=== PATIENT | female | born 1950 | race Caucasian/White ===

== ENCOUNTER 2018-09-14 07:14 | Day surgery (SDC) | payer MEDICARE, OTHER ==
[~2018-09-14 07:14] MED LIST: Lactated Ringers 1,000 ML IV SCH; Lidocaine 1%/Sod Bicarbonate in NS 8.4% 1 ML Syringe IDERM PRN; Midazolam 1 MG/ML 2 ML SDV ONE; Propofol 200 MG/20 ML SDV ONE; Sodium Chloride 0.9% 10 ML Syringe FLUSH PRN; ceFAZolin 1 GM Vial ONE; fentaNYL 100 MCG/2 ML SDV ONE
[2018-09-14] MEDS ORDERED: Dexamethasone 4 MG/ML SDV ONE (07:16)
[2018-09-14] MEDS ORDERED: Ondansetron 4 MG/2 ML SDV ONE (07:16)
[2018-09-14] MEDS ORDERED: Ketorolac 30 MG/ML SDV ONE (07:16)
--- NOTE | 2018-09-14 07:36 | PCM.PREANE ---
Preanesthetic Assessment - Anesthesia/Transfusion/Family Hx Anesthesia History: Prior Anesthesia Without Reaction Family History of Anesthesia Reaction: No Transfusion History: No Prior Transfusion(s) - Review of Systems General: No Symptoms Pulmonary: Other (current smoker) Cardiovascular: Palpitations (on occasion), Other (HTN, CAD, [place] 2000, denies any chest pain. 09/09/18 EKG sr with abnormal R wave progression with nonspecific t wave abnorml. unchanged from previous EKG) Gastrointestinal: Other (GERD controlled on meds) Other: Reports: Diabetes (HGB A1C 5.8), Thyroid Problems - Physical Assessment NPO Status Date: 09/13/18 NPO Status Time: 21:00 Pulse: 65 O2 Sat by Pulse Oximetry: 93 Respiratory Rate: 16 Blood Pressure: 148/72 ASA Class: 3 Mental Status: Alert & Oriented x3 Airway Class: Mallampati = 2 Dentition: Reports: Dentures, Edentulous Thyro-Mental Finger Breadths: 3 Mouth Opening Finger Breadths: 3 ROM/Head Extension: Full Lungs: Clear to Auscultation, Normal Respiratory Effort Cardiovascular: Regular Rate, Regular Rhythm - Lab Values: Laboratory Last Values MRSA (PCR) Negative 09/11/18 13:20 - Allergies Allergies/Adverse Reactions: Allergies Allergy/AdvReac Type Severity Reaction Status Date / Time No Known Allergies Allergy Verified 09/14/18 06:03 - Blood Blood Available: No Product(s) Available: None - Anesthesia Plan Pre-Op Medication Ordered: None Beta Sreedhar: Metoprolol Med Last Dose Date: 09/14/18 Med Last Dose Time: 06:50 - Acknowledgements Anesthesia Type Planned: General Anesthesia Pt an Appropriate Candidate for the Planned Anesthesia: Yes Alternatives and Risks of Anesthesia Discussed w Pt/Guardian: Yes Pt/Guardian Understands and Agrees with Anesthesia Plan: Yes PreAnesthesia Questionnaire - HOME MEDS Home Medications: Home Meds Acetaminophen/HYDROcodone [[place] 325-5 MG] 1 - 2 tab PO Q6H PRN #40 tablet 09/14 [Rx] Aspirin 325 mg PO DAILY #30 tab 09/14/18 [Rx] Cyclobenzaprine [Flexeril] 10 mg PO Q12H PRN #30 tab 09/14/18 [Rx] - CURRENT (IN HOUSE) MEDS Current Meds: Current Medications Lactated Ringer's (Ringers, Lactated) 1,000 mls @ 125 mls/hr IV ASDIRECTED MICHELLE Stop: 09/14/18 23:00 Lidocaine/Sodium Bicarbonate (Buffered Lidocaine 1% In Ns 8.4%) 0.25 ml IDERM ONETIME PRN PRN Reason: Prior to IV Start Stop: 09/14/18 23:00 Sodium Chloride (Saline Flush) 10 ml FLUSH ASDIRECTED PRN PRN Reason: Keep Vein Open Stop: 09/14/18 18:00 Discontinued Medications Cefazolin Sodium (Ancef) Confirm Administered Dose 2 gm .ROUTE .STK-MED ONE Stop: 09/14/18 07:13 Dexamethasone (Dexamethasone) Confirm Administered Dose 4 mg .ROUTE .STK-MED ONE Stop: 09/14/18 07:17 Fentanyl (Sublimaze) Confirm Administered Dose 100 mcg .ROUTE .STK-MED ONE Stop: 09/14/18 07:14 Ketorolac Tromethamine (Toradol) Confirm Administered Dose 30 mg .ROUTE .STK- MED ONE Stop: 09/14/18 07:17 Midazolam HCl (Versed 1 Mg/Ml) Confirm Administered Dose 2 mg .ROUTE .STK-MED ONE Stop: 09/14/18 07:14 Ondansetron HCl (Zofran) Confirm Administered Dose 4 mg .ROUTE .STK-MED ONE Stop: 09/14/18 07:17 Propofol (Diprivan 20 Ml) Confirm Administered Dose 200 mg .ROUTE .STK-MED ONE Stop: 09/14/18 07:13
[2018-09-14] MEDS ORDERED: Ropivacaine 0.5% 5 MG/ML 30 ML SDV ONE (07:51)
[2018-09-14] MEDS ORDERED: EPINEPHrine 1 MG/ML SDV ONE (07:51)
[2018-09-14] MEDS ORDERED: Bupivacaine 0.25% 30 ML SDV ONE (07:55)
[2018-09-14] MEDS ORDERED: Albuterol 0.083% 2.5 MG/3 ML Neb Soln NEB ONE (08:00)
[2018-09-14] MEDS ORDERED: fentaNYL 100 MCG/2 ML SDV ONE (08:28)
[2018-09-14] MEDS ORDERED: Lidocaine 1% PF 2 ML SDV ONE (08:46)
--- NOTE | 2018-09-14 09:02 | PCM.SN ---
- Free Text/Narrative Note: Interscalene nerve block note Date: 09/14/2018 Start: 804 Time Out: 804 Stop: 819 Procedure: Right interscalene block under US guidance for postoperative pain control Patient chart reviewed, risk/benefits discussed with patient, consent obtained. Patient positioned supine, monitors/alarms on, oxygen placed via nasal cannula at 2 LPM. Right shoulder prepped with chloraprep x2. Sterile drapes placed with aseptic technique. Under US guidance, right subclavian artery visualized along with the brachial plexus. Plexus followed cephalad up to C6 cricoid level, and area localized with 2mls of 1% lidocaine. 22gauge 2 inch stimiplex needle inserted under US and guided to brachial plexus C5-C6 trunks with 0.44mV with stimulation of biceps noted. Stimulation abolished at 0.2mVs. 1ml of Normal Saline injected with loss of stimulation. Incremental injection of 5mls with negative aspiration prior to each injection of 0.5% ropivacaine with 1:200,000 epinephrine. Total volume=30mls. Refer to nurses notes for vital signs. John Patten CRNA
[2018-09-14] MEDS ORDERED: Phenylephrine/Normal Saline 100 MCG/ML 10 ML Syringe ONE ×3 (09:19→09:58)
[2018-09-14] MEDS ORDERED: Lactated Ringers 1,000 ML ONE (09:19)
[2018-09-14] MEDS ORDERED: Ondansetron 4 MG/2 ML SDV IVPUSH PRN (09:54)
[2018-09-14] MEDS ORDERED: ePHEDrine 50 MG/ML SDV IVPUSH PRN (09:54)
[2018-09-14] MEDS ORDERED: diphenhydrAMINE 50 MG/ML SDV IVPUSH PRN (09:54)
[2018-09-14] MEDS ORDERED: fentaNYL 100 MCG/2 ML SDV IVPUSH PRN (09:54)
--- NOTE | 2018-09-14 10:53 | CR ---
Right shoulder: Three fluoroscopic spot views of the right shoulder were obtained utilizing C-arm device. Comparison: No previous shoulder exam is available. Study shows placement of plate and screws within the proximal humerus. This hardware crosses a fracture within the surgical neck. Fluoroscopy time given as 151.1 seconds. Impression: 1. Procedural study as noted above. Diagnostic code #2
--- NOTE | 2018-09-14 10:57 | PCM.POSTAN ---
POST ANESTHESIA ASSESSMENT - MENTAL STATUS Mental Status: Alert, Oriented - VITAL SIGNS Pulse Rate: 90 SaO2: 97 Resp Rate: 14 Blood Pressure: 94/60 Temperature: 36.4 C - RESPIRATORY Respiratory Status: Respiratory Rate WNL, Airway Patent, O2 Saturation Stable, Supplemental Oxygen - CARDIOVASCULAR CV Status: Pulse Rate WNL, Blood Pressure Stable - GASTROINTESTINAL GI Status: No Symptoms - PAIN Pain Score: 0 - POST OP HYDRATION Hydration Status: Adequate & Stable
--- NOTE | 2018-09-15 13:51 | PCM48HPAN ---
Post Anesthesia Note - EVALUATION WITHIN 48HRS OF ANESTHETIC Vital Signs in Normal Range: Yes Patient Participated in Evaluation: Yes Respiratory Function Stable: Yes Airway Patent: Yes Cardiovascular Function Stable: Yes Hydration Status Stable: Yes Pain Control Satisfactory: Yes Nausea and Vomiting Control Satisfactory: Yes Mental Status Recovered: Yes Pulse Rate: 90 Resp Rate: 16 Temperature: 36.4 C Blood Pressure: 94/60
--- NOTE | 2018-09-16 07:22 | PCM.OPNOTE ---
- General Post-Op/Procedure Note Date of Surgery/Procedure: 09/14/18 Operative Procedure(s): open reduction internal fixation of right proximal humerus fracture Pre Op Diagnosis: right proximal humerus fracture Post-Op Diagnosis: Same Anesthesia Technique: General ET Tube, Regional Block Primary Surgeon: Lew Escoto Anesthesia Provider: Damaris Chappell Sales Ledger Clerk: Patricia Zayas EBL in mLs: 40 Complications: None Condition: Good
--- NOTE | 2018-09-16 08:07 | OR ---
DATE OF OPERATION: 09/14/2018 SURGEON: Lew Escoto MD OPERATION PERFORMED: Open reduction and internal fixation of right proximal humerus fracture with repair of chronic supraspinatus tear of right shoulder. PREOPERATIVE DIAGNOSIS: Right proximal humerus fracture. POSTOPERATIVE DIAGNOSIS: Right proximal humerus fracture with chronic rotator cuff tear of right shoulder. ANESTHESIA: General endotracheal intubation with regional interscalene block. ANESTHESIA PROVIDER: Damaris Chappell. SALES PROMOTION MANAGER: Patricia Zayas PA-C ESTIMATED BLOOD LOSS: 4 mL. COMPLICATIONS: None. CONDITION: Stable. DESCRIPTION OF PROCEDURE: The patient was identified in the preoperative holding area. Proper site was marked and identified by the surgeon. The patient was taken back to the operating theater, where after adequate anesthesia, the patient's right upper extremity was sterilely prepped and draped in the usual sterile fashion. OR- wide time-out was performed. The patient received 2 g IV Ancef. At this time, a standard deltopectoral incision was made. This was taken down to the cephalic vein. The cephalic vein was identified as well as the deltopectoral interval. Any subacromial and subdeltoid adhesions were then resected. Retractor was placed out laterally. The proximal humerus fracture was identified. Old fracture hematoma was then curetted and rongeured out provisional reduction was then done. A Mesfin 3-hole proximal humerus plate was then placed under C-arm fluoroscopy and it was found to have adequate reduction in both AP and lateral views, making sure that the fracture was not significantly in varus. It was also noted, at this time, the patient had a chronic rotator cuff U-shaped tear that did not look acute whatsoever at the time of surgery, that I did place two #5 FiberWire stitches through, which were then later tied to the plate for repair. At this time, once the plate was in proper position, it was secured to the shaft and had good compression. Again, it was found to be in good position on the C-arm fluoroscopy at this time. Next, 5 locking screws were placed proximally both in a divergent fashion, anterior to posterior, and it was found to have adequate fixation throughout range of motion, so there would be no need for intercalary graft to the right proximal humerus. Once this was completed, the rest of the screws were placed proximally and then two more cortical screws were placed in the shaft and was found to have adequate fixation. The previous FiberWire stitches were then placed through the eyelet holes in the plate and were tied showing watertight repair of the previous chronic rotator cuff tear. At this time, adequate saline was irrigated through the wound. 2-0 Vicryl was used subcutaneously and Prineo was used for the skin. The patient was placed in a sterile soft dressing and a pillow sling and sent to PACU in a stable condition. ADY /[id number]
== END 2018-09-14 13:20 | disposition home or self-care (01) ==
LOC: JD.SDS 07:14
PROVIDERS: ATTEND Orthopaedic Surgery
DX: S42.201A Unspecified fracture of upper end of right humerus, initial encounter for closed fracture (principal); M75.101 Unspecified rotator cuff tear or rupture of right shoulder, not specified as traumatic; I10 Essential (primary) hypertension; E11.9 Type 2 diabetes mellitus without complications; I25.10 Atherosclerotic heart disease of native coronary artery without angina pectoris; E03.9 Hypothyroidism, unspecified; Z87.891 Personal history of nicotine dependence; Z79.84 Long term (current) use of oral hypoglycemic drugs; Z79.01 Long term (current) use of anticoagulants; Z79.82 Long term (current) use of aspirin; Z79.899 Other long term (current) drug therapy; X58.XXXA Exposure to other specified factors, initial encounter
CPT/HCPCS: 23412; 23615; 64415; 76000; 82962; 87641; 94640; J0171; J0690; J1885; J2001; J2250; J2370; J2405; J2704; J2795; J3010; J3490; J7120; J1100

== ENCOUNTER 2018-12-10 07:41 | Day surgery (SDC) | payer MEDICARE, OTHER ==
--- NOTE | 2018-12-09 10:25 | PCM.PREANE ---
Preanesthetic Assessment - Anesthesia/Transfusion/Family Hx Anesthesia History: Prior Anesthesia Without Reaction Family History of Anesthesia Reaction: No Transfusion History: No Prior Transfusion(s) Intubation History: Unknown - Review of Systems General: Fatigue Pulmonary: No Symptoms (Quit smoking 2018 (had smoked for 40 years)), Cough, Sputum (whitish) Cardiovascular: No Symptoms (History of HTN, CAD, [place] in 2000 with stents placed , denies any chest pain)), Palpitations (on occasion) Gastrointestinal: No Symptoms (GERD controlled with meds.), Decreased Appetite, Diarrhea (from metformin) Neurological: No Symptoms (Motion sickness history of....) Other: Reports: Diabetes (Am blood gxuea=543 @ 0815), Thyroid Problems ( Hypothyroid) - Physical Assessment NPO Status Date: 12/09/18 NPO Status Time: 21:00 Pulse: 69 O2 Sat by Pulse Oximetry: 96 Respiratory Rate: 16 Blood Pressure: 142/79 Temperature: 36.4 C Height: 1.63 m Weight: 72 kg ASA Class: 3 Mental Status: Alert & Oriented x3 Airway Class: Mallampati = 2 Dentition: Reports: Dentures, Edentulous Thyro-Mental Finger Breadths: 3 Mouth Opening Finger Breadths: 3 ROM/Head Extension: Full Lungs: Clear to Auscultation, Normal Respiratory Effort, Decreased Breath Sounds Cardiovascular: Regular Rate, Regular Rhythm, No Murmurs - Lab Values: MRSA: negative All labs reviewed and noted and within acceptable ranges to proceed with scheduled procedure. - Imaging/EKG Impressions: EKG: NSR rate 63, abnormal R wave progression, Nonspecific T wave abnormalities in anterior leads CXR: negative - Allergies Allergies/Adverse Reactions: Allergies Allergy/AdvReac Type Severity Reaction Status Date / Time No Known Allergies Allergy Verified 12/10/18 08:37 - Anesthesia Plan Pre-Op Medication Ordered: Beta Sreedhar Beta Sreedhar: Metoprolol Med Last Dose Date: 12/10/18 Med Last Dose Time: 06:00 - Acknowledgements Anesthesia Type Planned: General Anesthesia, MAC Pt an Appropriate Candidate for the Planned Anesthesia: Yes Alternatives and Risks of Anesthesia Discussed w Pt/Guardian: Yes Pt/Guardian Understands and Agrees with Anesthesia Plan: Yes PreAnesthesia Questionnaire - HOME MEDS Home Medications: Home Meds Aspirin 325 mg PO DAILY #30 tab 09/14/18 [Rx] Krill/[place]-3/Dha/Epa/Lipids [Krill Oil 300 mg Softgel] 1 cap PO DAILY 09/14/18 [History] Levothyroxine 112 mcg PO DAILY 09/14/18 [History] Losartan/Hydrochlorothiazide [Hyzaar 100-12.5 Tablet] 1 tab PO DAILY 09/14/18 [ History] Metoprolol Tartrate 50 mg PO TID 09/14/18 [History] Omeprazole Magnesium [Prilosec Otc] 20 mg PO DAILY 09/14/18 [History] Simvastatin [Zocor] 40 mg PO DAILY 09/14/18 [History] metFORMIN [Glucophage] 500 mg PO BID 09/14/18 [History] Ca Carbonate/Vitamin D3/Vit K [Calcium + D Soft Chewable Tab] 1 tab PO DAILY 06/17 [History] Triamcinolone Acetonide [Triamcinolone Acetonide 0.1% Crm] 1 dose TOP DAILY 06/17 [History] guaiFENesin/Pseudoephedrine [Mucinex D ER 600-60 MG] 1 tab PO BID PRN 12/09/18 [ History] Acetaminophen/HYDROcodone [[place] 325-5 MG] 1 - 2 tab PO Q6H PRN #20 tablet 12/10 [Rx] - CURRENT (IN HOUSE) MEDS Current Meds: Current Medications Lactated Ringer's (Ringers, Lactated) 1,000 mls @ 125 mls/hr IV ASDIRECTED MICHELLE Stop: 12/10/18 23:00 Lidocaine/Sodium Bicarbonate (Buffered Lidocaine 1% In Ns 8.4%) 0.25 ml IDERM ONETIME PRN PRN Reason: Prior to IV Start Stop: 12/10/18 18:00 Sodium Chloride (Saline Flush) 10 ml FLUSH ASDIRECTED PRN PRN Reason: Keep Vein Open Stop: 12/10/18 18:00
[~2018-12-10 07:41] MED LIST changes: +Dexamethasone 4 MG/ML 5 ML MDV ONE; +HYDROmorphone 0.5 MG/0.5 ML Syringe ONE; +Ketorolac 30 MG/ML SDV ONE; +Lactated Ringers 1,000 ML ONE; +Lidocaine 1% 6 ML ONE; +Ondansetron 4 MG/2 ML SDV ONE; -fentaNYL 100 MCG/2 ML SDV ONE; +fentaNYL 250 MCG/5 ML SDV ONE
[2018-12-10] MEDS: Albuterol 0.083% 2.5 MG/3 ML Neb Soln NEB PRN ×2 (08:45→12:17)
[2018-12-10] MEDS ORDERED: Bupivacaine 0.25% 30 ML SDV ONE (09:52)
[2018-12-10] MEDS ORDERED: Rocuronium 50 MG/5 ML Vial ONE (10:11)
[2018-12-10] MEDS ORDERED: Phenylephrine/Normal Saline 100 MCG/ML 10 ML Syringe ONE (10:37)
[2018-12-10] MEDS ORDERED: ePHEDrine/Normal Saline 25 MG/5 ML Syringe ONE (10:38)
[2018-12-10] MEDS ORDERED: Ondansetron 4 MG/2 ML SDV IVPUSH PRN (10:40)
[2018-12-10] MEDS ORDERED: HYDROmorphone 0.5 MG/0.5 ML Syringe IVPUSH PRN (10:40)
[2018-12-10] MEDS ORDERED: fentaNYL 100 MCG/2 ML SDV IVPUSH PRN (10:40)
[2018-12-10] MEDS ORDERED: diphenhydrAMINE 50 MG/ML SDV IVPUSH PRN (10:40)
[2018-12-10] MEDS ORDERED: ePHEDrine 50 MG/ML SDV IVPUSH PRN (10:40)
[2018-12-10] MEDS ORDERED: Albuterol 0.083% 2.5 MG/3 ML Neb Soln NEB PRN (10:40)
[2018-12-10] MEDS ORDERED: Phenylephrine 1 MG in Sodium Chloride 0.9% 10 ML IV SCH (10:45)
[2018-12-10] MEDS ORDERED: Neostigmine Methylsulfate 1 MG/ML 5 ML Syringe ONE (11:00)
--- NOTE | 2018-12-10 11:38 | PCM.POSTAN ---
POST ANESTHESIA ASSESSMENT - MENTAL STATUS Mental Status: Alert - VITAL SIGNS Pulse Rate: 73 SaO2: 93 (2 LPM nasal cannula) Resp Rate: 12 Blood Pressure: 108/49 Temperature: 36.4 C - RESPIRATORY Respiratory Status: Respiratory Rate WNL, Airway Patent, O2 Saturation Stable, Supplemental Oxygen - CARDIOVASCULAR CV Status: Pulse Rate WNL, Blood Pressure Stable - GASTROINTESTINAL GI Status: No Symptoms - POST OP HYDRATION Hydration Status: Adequate & Stable
--- NOTE | 2018-12-10 11:39 | PCM.OPNOTE ---
- General Post-Op/Procedure Note Date of Surgery/Procedure: 12/10/18 Operative Procedure(s): right shoulder deep hardware removal Pre Op Diagnosis: right shoulder painful hardware Post-Op Diagnosis: Same Anesthesia Technique: General LMA, Local Primary Surgeon: Lew Escoto Anesthesia Provider: Becca Sampson Licensed Staff Mft: Patricia Zayas in mLs: 5 Complications: None Condition: Good
--- NOTE | 2018-12-10 12:05 | OR ---
DATE OF OPERATION: 12/10/2018 SURGEON: Lew Escoto MD OPERATION PERFORMED: Right shoulder deep hardware removal. PREOPERATIVE DIAGNOSIS: Right shoulder painful hardware with prominent screw. POSTOPERATIVE DIAGNOSIS: Right shoulder painful hardware with prominent screw. ANESTHESIA: General LMA with local. ANESTHESIA PROVIDER: Becca Sampson CRNA. VAMPER: Patricia Zayas PA-C. ESTIMATED BLOOD LOSS: Less than 5 mL. COMPLICATIONS: None. CONDITION: Stable. DESCRIPTION OF PROCEDURE: Patient was identified in the preop holding area where proper site was marked and identified by the surgeon. The patient was taken back to the operative theater where after adequate anesthesia, the patient's right upper extremity was sterilely prepped and draped in the usual sterile fashion. OR time-out was performed. The patient received 2 g of IV Ancef. At this time, utilizing C-arm fluoroscopy, I was able to identify the screw. A small focal incision was made. Blunt dissection was taken down to the screw. It was easily identified and a hex screwdriver was used to remove the prominent screw. The rest of the screws were not prominent and were intact. The shoulder had free range of motion with no signs of instability at the fracture site. At this time, adequate saline was irrigated through the wound. The skin was then closed. Soft tissue dressing was applied. The patient was sent to PACU in stable condition. ADY /[id number]
--- NOTE | 2018-12-10 12:24 | PCM48HPAN ---
Post Anesthesia Note - EVALUATION WITHIN 48HRS OF ANESTHETIC Vital Signs in Normal Range: Yes Patient Participated in Evaluation: Yes Respiratory Function Stable: Yes Airway Patent: Yes Cardiovascular Function Stable: Yes Hydration Status Stable: Yes Pain Control Satisfactory: Yes Nausea and Vomiting Control Satisfactory: Yes Mental Status Recovered: Yes
--- NOTE | 2018-12-10 12:43 | CR ---
Right humerus: Six fluoroscopic spot views were obtained of the proximal right humerus utilizing C-arm device. Comparison: Prior study of 09/14/18. Previous fracture within the proximal humerus is noted. Plate and screws are in place. Study shows removal of one of the screws. Other screws remain in place. Fluoroscopy time is given as 45.5 seconds. Impression: 1. Procedural study as noted above. Diagnostic code #2
== END 2018-12-10 13:09 | disposition home or self-care (01) ==
LOC: JD.SDS 07:41
PROVIDERS: ATTEND Orthopaedic Surgery
DX: T84.84XA Pain due to internal orthopedic prosthetic devices, implants and grafts, initial encounter (principal); K21.9 Gastro-esophageal reflux disease without esophagitis; I25.2 Old myocardial infarction; E11.9 Type 2 diabetes mellitus without complications; I10 Essential (primary) hypertension; E78.00 Pure hypercholesterolemia, unspecified; E03.9 Hypothyroidism, unspecified; Z87.891 Personal history of nicotine dependence; Z86.79 Personal history of other diseases of the circulatory system; Z79.82 Long term (current) use of aspirin; Z79.84 Long term (current) use of oral hypoglycemic drugs; Z79.899 Other long term (current) drug therapy; Z95.5 Presence of coronary angioplasty implant and graft
CPT/HCPCS: 20680; 76000; 82962; 94640; J0690; J1170; J2001; J2250; J2370; J2405; J2704; J2710; J3010; J3490; J7050; J7120; J1100; J1885

== ENCOUNTER 2024-05-20 07:15 | Day surgery (SDC) | payer MEDICARE, OTHER ==
[2024-05-20] MEDS: Polymyxin B/Trimethoprim 10 ML Bottle EYERT SCH (07:27)
[2024-05-20] MEDS: Brimonidine 0.2% Ophth Soln 5 ML Bottle EYERT SCH (07:30)
[2024-05-20] MEDS: Phenylephrine 2.5% Ophth Soln 2 ML Bot EYERT SCH (07:33)
[2024-05-20] MEDS: Tropicamide 1% Ophth Soln 3 ML Bottle EYERT SCH (07:36)
[2024-05-20] MEDS: Tetracaine HCl/PF 0.5% 4 ML Bottle EYEBOTH SCH (08:47)
[2024-05-20] MEDS: Lidocaine 1% PF 2 ML SDV INJECT SCH (09:07)
[2024-05-20] MEDS: Cefuroxime 10 MG/ML SYRINGE EYERT SCH (09:17)
[2024-05-20] MEDS: Pilocarpine 4% Ophth Soln 15 ML Bot EYERT SCH (09:18)
== END 2024-05-20 09:30 | disposition home or self-care (01) ==
LOC: JD.SDS 07:15
PROVIDERS: ATTEND Ophthalmology
DX: E11.36 Type 2 diabetes mellitus with diabetic cataract (principal); H25.813 Combined forms of age-related cataract, bilateral; I10 Essential (primary) hypertension; H02.831 Dermatochalasis of right upper eyelid; H02.834 Dermatochalasis of left upper eyelid; H18.413 Arcus senilis, bilateral; H16.103 Unspecified superficial keratitis, bilateral; H16.223 Keratoconjunctivitis sicca, not specified as Sjogren's, bilateral; E03.9 Hypothyroidism, unspecified; E78.00 Pure hypercholesterolemia, unspecified; Z79.82 Long term (current) use of aspirin; Z79.84 Long term (current) use of oral hypoglycemic drugs; Z79.899 Other long term (current) drug therapy
CPT/HCPCS: A9270-GY; J0697; J3490

== ENCOUNTER 2024-06-17 07:15 | Day surgery (SDC) | payer MEDICARE, OTHER ==
[2024-06-17] MEDS: Polymyxin B/Trimethoprim 10 ML Bottle EYELF SCH (07:21)
[2024-06-17] MEDS: Brimonidine 0.2% Ophth Soln 5 ML Bottle EYELF SCH (07:26)
[2024-06-17] MEDS: Phenylephrine 2.5% Ophth Soln 2 ML Bot EYELF SCH (07:31)
[2024-06-17] MEDS: Tropicamide 1% Ophth Soln 3 ML Bottle EYELF SCH (07:43)
[2024-06-17] MEDS: Tetracaine HCl/PF 0.5% 4 ML Bottle EYEBOTH SCH (09:40)
[2024-06-17] MEDS: Lidocaine 1% PF 2 ML SDV INJECT SCH (09:55)
[2024-06-17] MEDS: Cefuroxime 10 MG/ML SYRINGE EYELF SCH (10:07)
[2024-06-17] MEDS: Pilocarpine 4% Ophth Soln 15 ML Bot EYELF SCH (10:09)
== END 2024-06-17 10:15 ==
LOC: JD.SDS 07:15
PROVIDERS: ATTEND Ophthalmology
DX: E11.36 Type 2 diabetes mellitus with diabetic cataract (principal); H25.812 Combined forms of age-related cataract, left eye; H52.31 Anisometropia; H40.032 Anatomical narrow angle, left eye; H18.413 Arcus senilis, bilateral; I10 Essential (primary) hypertension; K21.9 Gastro-esophageal reflux disease without esophagitis; E03.9 Hypothyroidism, unspecified; E78.00 Pure hypercholesterolemia, unspecified; Z79.890 Hormone replacement therapy; Z79.899 Other long term (current) drug therapy
CPT/HCPCS: 66984; A9270; J0697; 00142; 99100; J3490; V2632